=== PATIENT | male | born 1985 | race Caucasian/White ===

== ENCOUNTER 2024-02-07 22:47 | Emergency (ER) | payer OTHER ==
[~2024-02-07] VITALS: Ht 180.3 cm; Wt 122.3 kg
[2024-02-07] MEDS ORDERED: KETOROLAC TROMETHAMINE 60 MG/2 ML VIAL IM ONE (23:15)
[2024-02-07] MEDS ORDERED: diazePAM 10 MG/2 ML SYR IM ONE (23:15)
[2024-02-07] MEDS ORDERED: CYCLOBENZAPRINE10 MG PO (23:42)
[2024-02-07] MEDS ORDERED: methylPREDNISolone 4 MG HOME.PACK PO ONE (23:45)
[2024-02-07] MEDS ORDERED: CYCLOBENZAPRINE HCL 10 MG HOME.PACK PO ONE (23:45)
[2024-02-08 00:02] VITALS: BP 150/103
== END 2024-02-07 23:59 | disposition home or self-care (01) ==
LOC: ED 22:47
DX: M54.16 Radiculopathy, lumbar region (principal)
CPT/HCPCS: 72100; 73502; J1885; J3360